=== PATIENT | female | born 1965 | race Caucasian/White ===

== ENCOUNTER → 2021-03-03 13:10 | Outpatient (CLI) | payer MEDICARE, SELFPAY ==
--- NOTE | ~2021-03-03 | CT_ITS ---
EXAMINATION: CT sinus wo con DATE: 03/03/2021 13:42 INDICATION: Other specified disorders of nose and nasal sinuses. Chronic headaches. TECHNIQUE: Computed tomography (CT) of the paranasal sinuses was performed without intravenous contra st. Coronal reconstructions were obtained. Automated exposure control was employed. The dose-length p roduct was 274.70 mGy-cm. COMPARISON: None FINDINGS: There is occlusion of the bilateral ostiomeatal complexes. Complete opacification of the right fronta l sinus. Moderate mucosal thickening in the bilateral ethmoid and maxillary sinuses. Mild mucosal thi ckening the bilateral sphenoid and left frontal sinuses. There is dependently layering fluid filling approximately half of the left maxillary sinus. Small amount of bubbly mucus in the left sphenoid sin us. Mild leftward bowing of the nasal septum. Maxillofacial bones are otherwise unremarkable with no fractures or osteolysis. Several dental restorations. There is periapical lucency surrounding the sylvester ts of the posterior most right mandibular molar. Mastoid air cells and middle ear cavities are clear. Bilateral orbits are normal. Atherosclerotic calcification is at the bilateral carotid siphons. IMPRESSION: 1. Extensive sinus disease including layering fluid in the left maxillary sinus, bubbly mucus in the left sphenoid sinus and occlusion of the bilateral ostiomeatal complexes. Reviewed, dictated and finalized at location A. CLEANING MANAGER IMPRESSION: 1. Extensive sinus disease including layering fluid in the left maxillary sinus , bubbly mucus in the left sphenoid sinus and occlusion of the bilateral ostiom eatal complexes.
== END ==
PROVIDERS: PCP Family Medicine; Visit Provider Otolaryngology
DX: J34.89 Other specified disorders of nose and nasal sinuses (principal)
CPT/HCPCS: 70486

== ENCOUNTER 2021-03-27 07:46 | Outpatient (CLI) | payer MEDICARE, SELFPAY ==
--- NOTE | 2021-03-27 07:49 | ECG_ITS ---
Measurements Intervals [place] Rate: 78 P: 62 AR: 157 QRS: 11 QRSD: 94 T: 42 QT: 377 QTc: 431 Interpretive Statements SINUS RHYTHM POSSIBLE LEFT ATRIAL ENLARGEMENT DELAYED PRECORDIAL R/S TRANSITION BASELINE ARTIFACT- I, II, III, AVR, AVL, AVF BORDERLINE ECG Electronically Signed On 03-27-2021 8:10:46 MAKE UP MAN by Pepe Art D.O.
== END 2021-03-27 07:47 | disposition home or self-care (01) ==
LOC: ANHSURGERY 07:49
PROVIDERS: PCP Family Medicine; Visit Provider Otolaryngology
DX: Z01.818 Encounter for other preprocedural examination (principal); Z72.0 Tobacco use
CPT/HCPCS: 93005

== ENCOUNTER 2021-03-31 01:54 | Day surgery (SDC) | payer MEDICARE, SELFPAY ==
[2021-03-26 11:38] VITALS: BMI 27.3
--- NOTE | 2021-03-26 11:51 | PC.NURSE ---
Report to the Outpatient Waiting Room, entrance under the green pavilion located off [facility], at time 9:00 on date 03/31/21. OR Time: 11:00. - You will be asked a series of questions to screen for COVID 19 for your protection. - A mask is required within the hospital. - No visitors are allowed at this time. Preoperative COVID Testing Requirements: No COVID Test needed if: (proof is required; if not received patient will have Rapid Test prior to entry) - Patient has received COVID Vaccine at least 14 days prior to procedure date or - Patient has positive COVID test result within last 90 days of surgery date. COVID Test needed if above criteria is not met Patients may have clear liquids (water, carbonated beverages, clear teas, apple juice) until 3 hours prior to surgery (8:00) with a maximum of 20 ounces. - No food from midnight until time of surgery Take the following medications with a SIP of water the morning of surgery: FLEXERIL AND HYDROCODONE (IF NEEDED) Medications to discontinue per physician: N/A Date to take last dose: N/A Please no make-up, nail czech, hairspray, perfume, deodorant, or body powder the day of surgery. No jewelry (including any body piercings) or valuables the day of surgery, leave them at home. Please take a shower or bath the night before, or the morning of, surgery with an antibacterial soap. Wear comfortable, loose fitting clothing. - Jewelry must be removed prior to entering the operating room. Rings and piercings that are not removed may be cut off. - The hospital will not accept responsibility for valuables. - Please leave all valuables, including medications, at home the day of surgery. If you are going home after surgery, a licensed bottom hoop driver must drive you home. - NO public transportation without another adult. - We recommend that an adult stay with you for 24 hours following discharge. - We also recommend that you do not drive, make important decision, drink alcoholic beverages, or take any drugs that were not prescribed by your health care provider for at least 24 hours after your discharge time. Follow any additional instructions given to you from your surgeon. Telephone instructions given to MAURICIO CORTES and asked if any additional questions and then verbalized understanding. Patient advised to call surgeon office or pre surgery nurse liaison [phone] if any additional questions.
--- NOTE | 2021-03-30 07:21 | PM.HPGS ---
History of Present Illness History of Present Illness Consent: Risks, benefits, and alternatives have been discussed and questions answered. Patient agrees to proceed with procedure. Chief complaint: chronic sinusitis Narrative: Estefani Camacho is a 56 year old female with an adhesion on the left side of her nose and sinusitis in both ethmoids an [facility] Social History Social History Smoking packs per day: 1 Smoking cigarettes per day: 20.0 Years smoked: 40 Smoking pack-years: 40.00 Smoking status: Current every day smoker Tobacco type: cigarettes Alcohol intake: never Substance use: never Substance use type: does not use Spiritual care concerns: No Meds Home Medications and Allergies Home Medications Medication Instructions Recorded Confirmed Type cyclobenzaprine 10 mg tablet 10 mg PO TID 12/22/20 03/26/21 History hydrocodone-acetaminophen 1 tablet PO TID 03/26/21 03/26/21 History Allergies Allergy/AdvReac Type Severity Reaction Status Date / Time No Known Allergies Allergy Verified 03/26/21 11:37 Exam Narrative: chest clear heart rhythm murmurs abdomen soft adhesion on the left side of the nose with deviated septum Assessment and Plan Additional Plan plan septoplasty lysis of adhesions anterior posterior ethmoidectomy maxillary antrostomy bilater
--- NOTE | 2021-03-30 12:53 | P.PNAN_ITS ---
Anes - Initial Pre Proc Eval Procedure: Operation Date: 03/31/21 10:45 Proposed Procedures p Total Ethmoidectomy, Bilateral Maxillary Antrostomy with Tissue Removal, Lysis Left Nasal Adhesions - Carlos Chau MD Date/Time: 03/30/21 12:53 Surgeon: Carlos Chau MD Pre Op Diagnosis: chronic sinusitis Patient Data Age: 56 Gender: F Height: 1.52 m Weight: 63.5 kg Allergies Allergy/AdvReac Type Severity Reaction Status Date / Time No Known Allergies Allergy Verified 03/31/21 08:43 Home Medications Medication Instructions Recorded Confirmed Type cyclobenzaprine 10 mg tablet 10 mg PO TID 12/22/20 03/31/21 History hydrocodone-acetaminophen 1 tablet PO TID 03/26/21 03/31/21 History Patient hx anesthesia problems: none Family hx anesthesia problems: none Results Review: All pre-operative results and documents have been reviewed as part of the pre-operative evaluation. [facility] Past Medical History Medical History (Updated 03/30/21 @ 12:54 by Andrade Mari MD) Adhesions of nasal septum Back pain Overweight (BMI 25.0-29.9) Tobacco abuse Social History Social History Smoking packs per day: 1 Smoking cigarettes per day: 20.0 Years smoked: 40 Smoking pack-years: 40.00 Smoking status: Current every day smoker Tobacco type: cigarettes Alcohol intake: never Substance use: former Substance use type: does not use Living arrangements: alone Spiritual care concerns: No Anes - Eval Final PreProcedure Day of Procedure 03/30/21 12:53 Patient weight: overweight Heart: regular rate and rhythm Lungs: clear to auscultation and normal air movement Airway: Mallampati scale class II Neurological: alert and oriented Last oral intake: >/= 8 hours ASA classification: II Emergent: no Anesthetic plan: proceed Anesthesia type and monitoring: general ETT Results Review: All pre-operative results and documents have been reviewed as part of the pre-operative evaluation. Informed Consent: The patient's anesthetic plan and its attendant risks and b enefits were discussed with the patient/family/POA. Questions were solicited and answers provided to the satisfaction of the patient/family/POA.
[2021-03-31] VITALS (9 sets, daily range): BP systolic 137–223; BP diastolic 84–121; PULSE 71–93; RESP 14–20; TEMP 36.1–36.5; O2SAT 93–100
--- NOTE | 2021-03-31 05:58 | WPDHPUPDATE1 ---
History and Physical Update Update Date/Time: 03/31/21 05:58 History and Physical has been reviewed, including an updated exam of the patient. There are NO changes in the patient's condition. Risks, benefits, and alternatives have been discussed and questions answered. Patient agrees to proceed with procedure.
[2021-03-31] MEDS: ACETAMINOPHEN 500 MG TABLET 1000 MG PO (09:12)
[2021-03-31] MEDS: LACTATED RINGERS 1,000 ML 30 ML IV CONT (09:12)
[2021-03-31] MEDS: LIDO 1%/EPINEPHRINE 1:100,000 50 ML VIAL INFILTRATE (10:06)
[2021-03-31] MEDS: COCAINE HCL (*CRX) 4% TOP SOLN 4 ML VIAL 1 APPLIC TOPICAL (10:07)
--- NOTE | 2021-03-31 10:49 | W.PM.PROC2 ---
Procedure Note - Detailed Date of Procedure 03/31/21 Pre-op Diagnosis chronic sinusitis Post-op Diagnosis same Procedure Performed Lysis of adhesion left anterior ethmoidectomy bilateral maxillary antrostomy bilateral Surgeon Carlos Chau MD Anesthesia general Description of Procedure Patient prepped and draped in usual fashion after induction of general endotracheal anesthesia. The nose was packed with cocaine 4% impregnated cottonoids. Injected 1% xylocaine 1 to [id number] epinephrine. With the aid of the 0 degree endoscope on the right side the nose was inspected the middle turbinate was medialized and turbenectomy was done with the micro debrider the ethmoid bulla opened with microdebrider as was the basal lamella and the posterior ethmoid. The natural ostia of the maxillary sinus was opened and enlarged with microdebrider thickened mucous membrane lining was removed and then packed with a mature this procedure repeated on the other sinus with identical similar findings. Uncinectomy was done on both sides. The ethomoid bulla was opened with micro debrider thickened mucos membrane was removed. Was then packed with Surgicel. Patient awakened returned to recovery in good condition. Drains No Packing Yes Pathology none sent Complications No immediate complications Condition stable Disposition PACU
[2021-03-31] MEDS: hydrALAZINE HCL 20 MG/ML VIAL 10 MG IV PUSH (11:10)
[2021-03-31] MEDS: fentaNYL CITRATE INJ (*CRX) 100 MCG/2 ML VIAL 25 MCG IV PUSH ×2 (11:15→11:21)
--- NOTE | 2021-03-31 11:19 | SUR.PHASEI ---
Simple mask removed at 1117.
[2021-03-31] MEDS: oxyCODONE HCL (*CRX) 5 MG TAB IR PO (11:51)
== END 2021-03-31 12:39 | disposition home or self-care (01) ==
PROVIDERS: PCP Family Medicine; Visit Provider Otolaryngology
PROC: (CPT 31267; principal; 2021-03-31 10:00)
DX: J32.8 Other chronic sinusitis (principal); J34.89 Other specified disorders of nose and nasal sinuses; F17.210 Nicotine dependence, cigarettes, uncomplicated
CPT/HCPCS: 31267; 31255; A9270; J0330; J0360; J1100; J2405; J2704; J3010; J7120

== ENCOUNTER 2021-10-12 08:56 | Outpatient (CLI) | payer MEDICARE, SELFPAY ==
--- NOTE | ~2021-10-12 | MR_ITS ---
EXAMINATION: MR lumbar spine wo con DATE: 10/12/2021 09:35 INDICATION: Lumbar disc disease. Paresthesias. TECHNIQUE: Magnetic resonance imaging (MRI) of the lumbar spine was performed without intravenous con trast. Sequences included sagittal T2-weighted FSE, sagittal T2-weighted FS FSE, sagittal T1-weighted FSE, and axial T2-weighted FSE. COMPARISON: Lumbar spine MRI 07/28/2015 FINDINGS: There is 10 degrees levoscoliosis of lower lumbar spine. Vertebral body heights are normal. There is mildly decreased disc height at L2-L3 and L3-L4 and severely decreased disc height at L4-L5 and L5-S1. The distal spinal cord signal intensity is normal. The conus medullaris is at L1-L2. The following disc levels are specifically discussed: L1-L2: The disc does not extend beyond the endplate margin. There is mild bilateral facet joint osteo arthritis. There is no neural foraminal stenosis. There is no central canal stenosis. L2-L3: The disc is bulging and has an annular fissure. There is mild bilateral facet joint osteoarthr itis. There is mild bilateral neural foraminal stenosis. There is mild central canal stenosis. L3-L4: The disc is bulging and has an annular fissure. There is mild bilateral facet joint osteoarthr itis. There is mild bilateral neural foraminal stenosis. There is mild central canal stenosis. L4-L5: The disc is bulging and has an annular fissure. There is moderate bilateral facet joint osteoa rthritis. There is moderate right and mild left neural foraminal stenosis. There is mild central filipe l stenosis. L5-S1: The disc is bulging and has an annular fissure. There is severe bilateral facet joint osteoart hritis. There is mild right and moderate left neural foraminal stenosis. There is mild central canal stenosis. IMPRESSION: 1. Severe lumbar spondylosis, stable from 07/28/2015. Reviewed, dictated and finalized at location A.
== END 2021-10-12 08:57 | disposition home or self-care (01) ==
DX: M51.9 Unspecified thoracic, thoracolumbar and lumbosacral intervertebral disc disorder (principal); R20.2 Paresthesia of skin; M47.816 Spondylosis without myelopathy or radiculopathy, lumbar region
CPT/HCPCS: 72148